=== PATIENT | female | born 1990 | race Caucasian/White ===

== ENCOUNTER → 2020-04-17 16:33 | Outpatient (BNVA) | payer SELFPAY | PROVIDERS: Visit Provider Registered Nurse | DX: Z20.2 Contact with and (suspected) exposure to infections with a predominantly sexual mode of transmission (principal) | CPT/HCPCS: 81000; 87491; 87591 ==

== ENCOUNTER → 2020-05-14 10:23 | Outpatient (BNVA) | payer SELFPAY | PROVIDERS: Visit Provider Registered Nurse | DX: J03.90 Acute tonsillitis, unspecified (principal) | CPT/HCPCS: 87070 ==

== ENCOUNTER → 2020-06-24 14:40 | Outpatient (BNVA) | payer SELFPAY | PROVIDERS: Visit Provider Registered Nurse | DX: N39.0 Urinary tract infection, site not specified (principal) | CPT/HCPCS: 81000 ==

== ENCOUNTER 2020-06-26 13:21 | Emergency (ER) | payer SELFPAY ==
[2020-06-26 13:27] VITALS: BP 98/63; PULSE 99; RESP 18; TEMP 36.7; O2SAT 99; BMI 20.7
--- NOTE | 2020-06-26 13:48 | W.ED.ABDPA2 ---
HPI - Abdominal Pain General: Chief Complaint: Abdominal Pain Stated Complaint: R SIDE ABD PAIN Time Seen by Provider: 06/26/20 13:35 History of Present Illness: HPI narrative: Patient is a 29-year-old female with abdominal pain. Patient states that about 4 days ago she began to develop some right upper quadrant pain. She states that this pain periodically radiates into her right lower quadrant and right flank. She denies any nausea or vomiting. She was seen at the time of onset by provider and diagnosed with a UTI. She was placed on Bactrim at that time. She was having some dysuria then. This has improved. However she states that her abdominal pain has persisted. She states it will periodically radiate to her shoulder blade as well. She does report some low-grade subjective fevers. She has had a prior hysterectomy. She denies any vaginal bleeding or discharge. MD elicited complaint: abdominal pain Pain Consistency: constant Location: RUQ Radiation: RUQ and R flank Associated Symptoms: Denies change in stool character, constipation, diarrhea, dysuria, fever(s), hematuria, melena, nausea, syncope and vomiting Review of Systems General: Reports: 10 or more systems reviewed and unremarkable except in HPI and below Const: Denies: fever(s) Eyes: Denies: blurry vision ENMT: Denies: nasal congestion Card: Denies: chest pain, palpitations, syncope or dyspnea on exertion Resp: Denies: dyspnea or productive cough GI: Reports: abdominal pain; Denies: nausea, vomiting, diarrhea, constipation, change in stool character or melena : Denies: dysuria or hematuria Musc: Denies: neck pain or back pain Skin/Breast: Denies: rash or new lesions Neuro: Denies: headache(s) or dizziness Psych: Denies: anxiety [place]/Lymph: Denies: easy bleeding, petechiae or purpura PFSH ED PFSH: Social History (Updated 06/26/20 @ 13:33 by Jd Armstrong RN) Smoking and tobacco status: never smoked Alcohol intake: current Alcohol intake frequency: few times a week Substance/Drug Use: never Adopted: No Lives independently: No Household members: children Current occupational status: student History of recent travel: No Sexually active: Yes Current gender identity: Female Physical Exam Const: COMMON NORMALS: no acute distress, patient oriented x3, alert and well nourished HENMT: COMMON NORMALS: normocephalic, atraumatic, EAC's normal, TM's normal bilaterally and Normal external nose present HEAD & SCALP: normocephalic and atraumatic FACE & SINUS: normal facial exam and face symmetric NOSE: Normal external nose present EXTERNAL AUDITORY CANAL: EAC's normal TYMPANIC MEMBRANE: TM's normal bilaterally MOUTH: Normal oral and palatal mucosa present and moist mucous membranes abnormal Eye: COMMON NORMALS: Equal, round and reactive pupils present PUPIL: Yes Equal, round and reactive pupils present Neck/C-Spine: GENERAL: Yes normal visual inspection Chest: COMMONS NORMALS: normal inspection of the chest Resp: COMMON NORMALS: normal respiratory effort, No retractions, No use of accessory muscles and clear to auscultation bilaterally AUSCULTATION: clear to auscultation bilaterally Cardio: COMMON NORMALS: regular rate, regular rhythm, S1 normal heart sound present, S2 normal heart sound present and No murmurs present (Cardio) RATE: regular rate RHYTHM: regular rhythm HEART SOUNDS: S1 normal heart sound present and S2 normal heart sound present GI: COMMON NORMALS: Soft to palpation and No hepatosplenomegaly present INSPECTION: Yes normal to inspection AUSCULTATION: Yes normoactive bowel sounds PALPATION: Yes Soft to palpation, Yes Firmness to palpation present (GI), Yes Tenderness to palpation present (GI) (Generalized but worse in the right upper and lower quadrant), Yes No hepatosplenomegaly present and Yes Other GI palpation findings present (Right CVA tenderness) RECTAL EXAM: deferred : COMMON NORMALS: Yes no CVA tenderness BLADDER/KIDNEY EXAM: Yes no CVA tenderness Back/Pelvis: COMMON NORMALS: no CVA tenderness Neuro: COMMON NORMALS: patient oriented x3 and moves all extremities SENSORIUM/ORIENTATION: Yes alert SPEECH: speech normal Psych: COMMON NORMALS: mental status grossly normal Skin: COMMON NORMALS: no rashes or lesions noted GENERAL SKIN EXAM: no rashes or lesions noted Course Vital Signs: Vital signs: Vital Signs Temperature 98.1 F 06/26/20 13:27 Pulse Rate 90 06/26/20 16:01 Respiratory Rate 16 06/26/20 16:01 Blood Pressure 97/63 06/26/20 16:01 Pulse Oximetry 100 06/26/20 16:01 MDM - Abdominal Pain MDM Narrative: Medical decision making narrative: Patient remained stable in ED. Her lab work is unremarkable with exception of a mild leukocytosis. Urine does have blood noted and some bacteria however its contaminated. Had a long discussion with the patient and her mother that I think she could have a potential kidney stone or pyelonephritis. We discussed the possibility of just treating her symptoms versus CT for definitive knowledge. They would prefer to go ahead and obtain the CT at this time. CT demonstrates right renal edema and inflammatory change that could be related to recently passed stone versus pyelonephritis. Given the patient's recent urinary tract infection I would suspect pyelonephritis. She is nontoxic in appearance. Advised that she needs to continue taking her Bactrim and I will extend her dosage from 5 days to 7 days. Also provide her with Zofran. Discussed that if she begins to run high fevers or has uncontrolled nausea and vomiting she is to return to the ED otherwise follow-up with her primary care doctor in the next couple of days. She voices understanding is agreeable to the plan of care. Lab Data: Labs: Lab Results 06/26/20 06/26/20 06/26/20 Range/Units 13:38 13:38 13:54 WBC 13.1 H (4.0-10.0) 10^3/ uL RBC 3.29 L (4.1-5.3) 10^6/u L Hgb 10.5 L (11.5-15.3) g/dL Hct 32.4 L (37.0-47.0) % MCV 98.5 (81-99) fL MCH 31.9 (28.0-34.0) pg MCHC 32.4 (30.0-36.0) g/dL RDW 12.0 L (12.1-15.1) % Plt Count 142 (130-400) 10^3/c mm MPV 10.5 H (7.4-10.4) fL Neut % (Auto) 82.6 % Lymph % (Auto) 5.1 % [place] % (Auto) 9.8 % Eos % (Auto) 0.2 % Baso % (Auto) 0.6 % Neut # (Auto) 10.81 H (1.8-7.7) 10^3/u L Lymph # (Auto) 0.7 L (0.8-4.8) 10^3/u L [place] # (Auto) 1.3 H (0.2-0.9) 10^3/u L Eos # (Auto) 0.0 (0.0-0.8) 10^3/u L Baso # (Auto) 0.1 (0.0-0.1) 10^3/u L Nucleated RBC % (a uto) 0 % Nucleated RBCs # 0.0 /100WBC Sodium 135 L (136-145) mmol/L Potassium 3.0 L (3.5-5.1) mmol/L Chloride 99 (98-107) mmol/L Carbon Dioxide 27 (22-29) mmol/L Anion Gap 12.0 (5-19) BUN 11 (6-20) mg/dL Creatinine 0.8 (0.5-0.9) mg/dL GFR Calculation 86.0 L (90-130) mL/min Glucose 116 H (65-115) mg/dL Calculated Osmolal ity 280 L (285-295) mOsm/k g Calcium 8.3 L (8.5-10.5) mg/dL Total Bilirubin 0.2 (0.15-1.2) mg/dL AST 15 (0-32) U/L ALT 11 (0-33) U/L Alkaline Phosphata se 100 (35-105) IU/L Total Protein 6.5 L (6.6-8.7) g/dL Albumin 3.4 L (3.5-5.2) g/dL Globulin 3.1 (1.3-4.6) g/dL Lipase 31 (13-60) U/L Urine Color Yellow (Yellow) Urine Appearance Cloudy (CLEAR) Urine pH 5 (5-7) Ur Specific Gravit y 1.010 (1.005-1.030) Urine Protein Neg (Negative) Urine Glucose (UA) Norm (Normal) Urine Ketones Negative (Negative) Urine Blood 3+ H (Negative) Urine Nitrate Negative (Negative) Urine Bilirubin Neg (Negative) Urine Urobilinogen 1 H (Negative) mg/dL Ur Leukocyte Azeb ase Negative (Negative) Urine RBC 5-10 H (0-2) /hpf Urine WBC 25-40 H (0-5) /hpf Ur Squamous Epith Cells 25-40 H (0-5) /hpf Amorphous Sediment Not Reportable Urine Bacteria 1+ H (NONE) /hpf Other Casts Wbc cast /lpf Discharge Plan Discharge Patient Disposition: Home Clinical Impression: Pyelonephritis Condition: Stable Prescriptions: New Bactrim DS 800-160 mg tablet 1 tab PO BID Qty: 4 RF: 0 Zofran 4 mg tablet 4 mg PO Q6H Qty: 14 RF: 0 No Action Bactrim DS 800-160 mg tablet 1 tab PO BID@1200,1900 RF: 0 escitalopram oxalate 10 mg tablet 10 mg PO DAILY@1200 RF: 0 Tylenol 325 mg Tablet 325 mg PO QID PRN (Reason: PAIN/HEADACHE) RF: 0 ibuprofen 200 mg Tablet 200 mg PO Q6H PRN (Reason: PAIN/HEADACHE) RF: 0 Discharge Orders: Discharge ED (Routine); Ordered 06/26/20 Ordered By: Gustavo Cuello Referrals: Paula Tyson FNP [Primary Care Provider] - Discharge Diet: Advance as tolerated Discharge Activity: Resume usual activity Activity Restrictions/Additional Instructions: Continue to take your Bactrim as prescribed. I did add 2 additional days for a total of 7 days for your prescription. Take the Zofran as prescribed. Alternate Tylenol and ibuprofen as needed for pain. Push oral fluids. Follow-up with your primary care doctor in 3 to 5 days for recheck. Return to the ED if you begin to run high fevers or have uncontrolled nausea and vomiting as discussed. Coding Level of Care Code ED 3D Animator for Katharine Damian Exam Comprehensive
[2020-06-26] MEDS: sodium chloride 0.9% 1,000 ML 999 ML IV (13:52)
[2020-06-26] MEDS: ketorolac 30 mg/mL INJ IVP (13:52)
[2020-06-26 14:08] LABS: Basophils # 0.1 10^3/uL (0.0-0.1); Basophils % 0.6 %; Eosinophils % 0.2 %; Hematocrit 32.4 % (37.0-47.0); Hemoglobin 10.5 g/dL (11.5-15.3); Lymphocytes # 0.7 10^3/uL (0.8-4.8); Lymphocytes % 5.1 %; Mean Corpuscular HGB Conc 32.4 g/dL (30.0-36.0); Mean Corpuscular Hemoglobin 31.9 pg (28.0-34.0); Mean Corpuscular Volume 98.5 fL (81-99); Mean Platelet Volume 10.5 fL (7.4-10.4); Monocytes # 1.3 10^3/uL (0.2-0.9); Monocytes % 9.8 %; Neutrophils # 10.81 10^3/uL (1.8-7.7); Neutrophils % 82.6 %; Nucleated Red Blood Cells % 0 %; Platelet Count 142 10^3/cmm (130-400); Red Blood Count 3.29 10^6/uL (4.1-5.3); White Blood Count 13.1 10^3/uL (4.0-10.0)
[2020-06-26 14:14] LABS: Alanine Aminotransferase 11 U/L (0-33); Albumin Level 3.4 g/dL (3.5-5.2); Alkaline Phosphatase 100 IU/L (35-105); Aspartate Amino Transferase 15 U/L (0-32); Blood Urea Nitrogen 11 mg/dL (6-20); Calcium 8.3 mg/dL (8.5-10.5); Carbon Dioxide 27 mmol/L (22-29); Chloride 99 mmol/L (98-107); Globulin 3.1 g/dL (1.3-4.6); Glucose 116 mg/dL (65-115); Lipase 31 U/L (13-60); Osmolality Calculated 280 mOsm/kg (285-295); Sodium 135 mmol/L (136-145); Total Bilirubin 0.2 mg/dL (0.15-1.2); Total Protein 6.5 g/dL (6.6-8.7)
[2020-06-26 14:33] LABS: Add Urine Microscopic? YES; Bilirubin Urine Neg (Negative); Blood Urine 3+ (Negative); Glucose Urine UA Norm (Normal); Ketones Urine Negative (Negative); Leukocyte Esterase Urine Negative (Negative); Nitrate Urine Negative (Negative); Protein Urine Neg (Negative); Urine Appearance Cloudy (CLEAR); Urine Color Yellow (Yellow); Urobilinogen Urine 1 mg/dL (Negative); pH Urine 5 (5-7)
[2020-06-26 14:44] LABS: Bacteria Urine 1+ /hpf; Squamous Epithelial Cell Urine 25-40 /hpf (0-5); WBC Urine 25-40 /hpf (0-5)
[2020-06-26 14:45] LABS: Add Urine Culture? No; Other Casts Urine WBC CAST /lpf
--- NOTE | 2020-06-26 14:47 | CTR_ITS ---
PROCEDURE INFORMATION: Exam: CT Abdomen And Pelvis Without Contrast Exam date and time: 06/26/2020 3:37 PM Age: 29 years old Clinical indication: Nausea; Abdominal pain; Localized; Right; Prior surgery; Surgery type: Partial hyst; Additional info: Flank pain TECHNIQUE: Imaging protocol: Computed tomography of the abdomen and pelvis without contrast. Radiation optimization: All CT scans at this facility use at least one of these dose optimization techniques: automated exposure control; mA and/or kV adjustment per patient size (includes targeted exams where dose is matched to clinical indication); or iterative reconstruction. COMPARISON: US Pelvis Female [id number] 09/12/2018 9:08 AM RADIATION DOSE METRICS: Total DLP (mGy-cm): 628.85 FINDINGS: Liver: Normal. No mass. Gallbladder and bile ducts: Gallbladder contracted. Nondilated biliary system. Pancreas: Normal. No ductal dilation. Spleen: Normal. No splenomegaly. Adrenal glands: Normal. No mass. Kidneys and ureters: Right-sided perinephric inflammatory fat stranding. Diffuse right renal edema. No hydronephrosis. Stomach and bowel: Unremarkable. No obstruction. No mucosal thickening. Appendix: No evidence of appendicitis. Intraperitoneal space: Trace pelvic free fluid. Vasculature: Unremarkable. No abdominal aortic aneurysm. Lymph nodes: Unremarkable. No enlarged lymph nodes. Urinary bladder: Unremarkable as visualized. Reproductive: Unremarkable as visualized. Bones/joints: Unremarkable. No acute fracture. Soft tissues: Unremarkable. CT/CT kidney stone [id number] IMPRESSION: Right renal edema and perirenal inflammatory changes are nonspecific. This may be secondary to a recently passed kidney stone, or alternatively acute pyelonephritis. Radiation Dose CTDIVOL = (mGy): DLP = 628.85 (mGy-cm)
[2020-06-26 15:02] VITALS: BP 91/66; PULSE 86; RESP 16; O2SAT 100
[2020-06-26 16:01] VITALS: BP 97/63; PULSE 90; RESP 16; O2SAT 100
[2020-06-26] MEDS: ondansetron 2 mg/ML SDV 2 mL 4 MG IVP (16:27)
[2020-06-26 16:32] VITALS: BP 90/73; PULSE 112; O2SAT 100
== END 2020-06-26 16:33 | disposition home or self-care (01) ==
PROVIDERS: Emergency Provider Emergency Medicine; PCP Registered Nurse
DX: N12 Tubulo-interstitial nephritis, not specified as acute or chronic (principal)
CPT/HCPCS: 74176; 80053; 81001; 83690; 85025; 96361; 96374; 96375; 99283; J1885; J2405; J7030

== ENCOUNTER → 2022-07-28 08:09 | Outpatient (BNVA) | payer SELFPAY | PROVIDERS: PCP Registered Nurse; Visit Provider Registered Nurse | DX: R35.0 Frequency of micturition (principal) | CPT/HCPCS: 81000 ==

== ENCOUNTER → 2022-07-30 09:31 | Outpatient (BNVA) | payer BC, MEDICAID, SELFPAY | PROVIDERS: PCP Registered Nurse; Visit Provider Registered Nurse | DX: N39.0 Urinary tract infection, site not specified (principal); J01.40 Acute pansinusitis, unspecified; R39.9 Unspecified symptoms and signs involving the genitourinary system | CPT/HCPCS: 81000; 87086; 87400; 87426 ==

== ENCOUNTER → 2023-01-24 11:48 | Outpatient (BNVA) | payer BC, MEDICAID, SELFPAY | PROVIDERS: PCP Registered Nurse; Visit Provider Registered Nurse | DX: R39.9 Unspecified symptoms and signs involving the genitourinary system (principal); J01.40 Acute pansinusitis, unspecified; U07.1 COVID-19 | CPT/HCPCS: 87400; 87426; 87880 ==

== ENCOUNTER → 2023-05-26 14:55 | Outpatient (BNVA) | payer MEDICAID, SELFPAY | PROVIDERS: PCP Registered Nurse; Visit Provider Registered Nurse | DX: J01.40 Acute pansinusitis, unspecified (principal) | CPT/HCPCS: 80053; 85025; 87400; 87426 ==

== ENCOUNTER → 2023-06-17 11:50 | Outpatient (BNVA) | payer MEDICAID, SELFPAY | PROVIDERS: PCP Registered Nurse; Visit Provider Registered Nurse | DX: N39.0 Urinary tract infection, site not specified (principal); Z20.2 Contact with and (suspected) exposure to infections with a predominantly sexual mode of transmission | CPT/HCPCS: 81000; 87491; 87591 ==

== ENCOUNTER → 2023-07-01 08:38 | Outpatient (BNVA) | payer MEDICAID, SELFPAY | PROVIDERS: PCP Registered Nurse; Visit Provider Registered Nurse | DX: Z20.2 Contact with and (suspected) exposure to infections with a predominantly sexual mode of transmission (principal) | CPT/HCPCS: 87491; 87591 ==

== ENCOUNTER → 2023-07-20 11:59 | Outpatient (BNVA) | payer MEDICAID, SELFPAY | PROVIDERS: PCP Registered Nurse; Visit Provider Registered Nurse | DX: N39.0 Urinary tract infection, site not specified (principal); N94.9 Unspecified condition associated with female genital organs and menstrual cycle | CPT/HCPCS: 81000; 87070; 87077; 87086; 87184; 87205 ==

== ENCOUNTER → 2024-01-26 10:56 | Outpatient (BNVA) | payer MEDICAID, SELFPAY | PROVIDERS: PCP Registered Nurse; Visit Provider Registered Nurse | DX: R30.0 Dysuria (principal) | CPT/HCPCS: 81000; 87086; 87491; 87591 ==

== ENCOUNTER → 2025-01-25 14:55 | Outpatient (BNVA) | payer MEDICAID, SELFPAY | PROVIDERS: PCP Registered Nurse; Visit Provider Registered Nurse | DX: N39.0 Urinary tract infection, site not specified (principal) | CPT/HCPCS: 81000 ==